=== PATIENT | female | born 1930 | race Caucasian/White ===

== ENCOUNTER 2018-05-14 10:40 | Inpatient (IN) | payer BC ==
[2018-05-14] VITALS (15 sets, daily range): BP systolic 96–155; BP diastolic 59–91
[~2018-05-14] VITALS: Ht 154.9 cm; Wt 93.2 kg
[2018-05-14 10:53] LABS: BASOPHIL (%) 0.4 % (0-1); EOSINOPHIL (%) 8.6 % (0-5); EOSINOPHIL COUNT 0.6 K/uL (0-0.3); HEMATOCRIT 39.3 % (36.0-46.0); HEMOGLOBIN 12.5 G/DL (11.9-15.5); IMMATURE GRANULOCYTE (%) 0.6 % (0.0-0.7); LYMPHOCYTE (%) 10.7 % (15-42); LYMPHOCYTE COUNT 0.8 K/uL (1.0-2.8); MCH 30.3 PG (29.0-34.0); MCHC 31.8 G/DL (30.0-36.0); MCV 95.4 FL (83-99); MONOCYTE (%) 7.3 % (3-12); MONOCYTE COUNT 0.5 K/uL (0-0.8); NEUTROPHIL (%) 72.4 % (45-76); NEUTROPHIL COUNT 5.2 K/uL (1.8-6.4); PLATELET COUNT 207 K/uL (156-360); RBC DIS.WIDTH-CV 14.6 % (11.8-14.6); RBC DIS.WIDTH-SD 51.4 % (39-53); RED BLOOD COUNT 4.12 M/uL (3.80-5.20); WHITE BLOOD COUNT 7.2 K/uL (4.1-10.2)
[2018-05-14 11:02] LABS: AMYLASE 65 IU/L (1-118); CHLORIDE 106 mEq/L (99-109); POTASSIUM 4.5 mEq/L (3.7-5.4); SODIUM 144 mEq/L (136-147)
[2018-05-14 11:04] LABS: GLUCOSE 129 mg/dL (70-99)
[2018-05-14 11:07] LABS: SERUM ETHYL ALCOHOL < 10 mg/dL
[2018-05-14 11:08] LABS: CREATININE 1.3 mg/dL (0.6-1.3); GFR ESTIMATE (CALCULATED) 41 mL/min/
[2018-05-14 11:09] LABS: UREA NITROGEN (BUN) 28 mg/dL (9-23)
[2018-05-14 11:11] LABS: LIPASE 30 U/L (1.0-51.0)
[2018-05-14 11:23] LABS: INTER. NORMALIZED RATIO 2.6
[2018-05-14] MEDS ORDERED: CELEBREX200 MG PO (11:44)
[2018-05-14] MEDS ORDERED: WARFARIN SODIUM3 MG PO (11:45)
[2018-05-14] MEDS ORDERED: KLOR-CON M1010 MEQ PO (11:45)
[2018-05-14] MEDS ORDERED: WARFARIN SODIUM4 MG PO (11:45)
[2018-05-14] MEDS ORDERED: LASIX40 MG PO (11:45)
[2018-05-14] MEDS ORDERED: METOPROLOL SUCC50 MG PO (11:46)
[2018-05-14 17:25] LABS: PTT 27.9 SEC (25-37)
[2018-05-14 17:37] LABS: INTER. NORMALIZED RATIO 1.2
[2018-05-15] VITALS (18 sets, daily range): BP systolic 105–167; BP diastolic 59–98
[2018-05-15 05:25] LABS: HEMOGLOBIN 10.8 G/DL (11.9-15.5); MCH 29.9 PG (29.0-34.0); MCHC 31.8 G/DL (30.0-36.0); MCV 94.2 FL (83-99); PLATELET COUNT 190 K/uL (156-360); RBC DIS.WIDTH-CV 14.5 % (11.8-14.6); RBC DIS.WIDTH-SD 50.2 % (39-53); RED BLOOD COUNT 3.61 M/uL (3.80-5.20); WHITE BLOOD COUNT 8.3 K/uL (4.1-10.2)
[2018-05-15 05:35] LABS: INTER. NORMALIZED RATIO 1.1
[2018-05-15 05:53] LABS: CHLORIDE 104 MEQ/L (99-109); CREATININE 0.9 MG/DL (0.6-1.3); GFR ESTIMATE (CALCULATED) > 59 mL/min/; GLUCOSE 103 mg/dL (70-99); MAGNESIUM 2.2 mg/dl (1.3-2.7); PHOSPHORUS 3.3 mg/dL (2.5-4.9); POTASSIUM 4.9 MEQ/L (3.7-5.4); SODIUM 140 MEQ/L (136-147); UREA NITROGEN (BUN) 25 mg/dL (9-23)
[2018-05-16 04:45] VITALS: BP 141/84
[2018-05-16 06:19] LABS: HEMATOCRIT 31.6 % (36.0-46.0); HEMOGLOBIN 10.2 G/DL (11.9-15.5); MCH 30.3 PG (29.0-34.0); MCHC 32.3 G/DL (30.0-36.0); MCV 93.8 FL (83-99); PLATELET COUNT 168 K/uL (156-360); RBC DIS.WIDTH-CV 14.4 % (11.8-14.6); RBC DIS.WIDTH-SD 49.4 % (39-53); RED BLOOD COUNT 3.37 M/uL (3.80-5.20); WHITE BLOOD COUNT 7.7 K/uL (4.1-10.2)
[2018-05-16 06:49] LABS: CHLORIDE 103 MEQ/L (99-109); GFR ESTIMATE (CALCULATED) 56 mL/min/; GLUCOSE 101 mg/dL (70-99); MAGNESIUM 2.2 mg/dl (1.3-2.7); PHOSPHORUS 3.2 mg/dL (2.5-4.9); POTASSIUM 4.4 MEQ/L (3.7-5.4); SODIUM 139 MEQ/L (136-147); UREA NITROGEN (BUN) 23 mg/dL (9-23)
[2018-05-16 07:36] VITALS: BP 105/68
[2018-05-16 11:02] VITALS: BP 127/66
[2018-05-16 15:58] VITALS: BP 140/86
[2018-05-16 20:18] VITALS: BP 149/62
[2018-05-16 23:54] VITALS: BP 133/96
[2018-05-17 04:44] VITALS: BP 129/89
[2018-05-17 07:13] LABS: HEMATOCRIT 33.7 % (36.0-46.0); HEMOGLOBIN 10.8 G/DL (11.9-15.5); MCH 30.3 PG (29.0-34.0); MCV 94.7 FL (83-99); PLATELET COUNT 182 K/uL (156-360); RBC DIS.WIDTH-CV 14.4 % (11.8-14.6); RBC DIS.WIDTH-SD 49.8 % (39-53); RED BLOOD COUNT 3.56 M/uL (3.80-5.20); WHITE BLOOD COUNT 7.8 K/uL (4.1-10.2)
[2018-05-17 07:36] LABS: CHLORIDE 101 MEQ/L (99-109); GFR ESTIMATE (CALCULATED) 56 mL/min/; GLUCOSE 97 mg/dL (70-99); MAGNESIUM 2.2 mg/dl (1.3-2.7); PHOSPHORUS 3.4 mg/dL (2.5-4.9); POTASSIUM 4.7 MEQ/L (3.7-5.4); SODIUM 139 MEQ/L (136-147); UREA NITROGEN (BUN) 23 mg/dL (9-23)
[2018-05-17 08:12] VITALS: BP 126/78
[2018-05-17 10:56] VITALS: BP 130/81
[2018-05-17 14:52] VITALS: BP 126/67
[2018-05-17 23:44] VITALS: BP 140/88
[2018-05-18 04:32] VITALS: BP 142/86
[2018-05-18 06:29] LABS: HEMATOCRIT 34.1 % (36.0-46.0); HEMOGLOBIN 10.8 G/DL (11.9-15.5); MCHC 31.7 G/DL (30.0-36.0); MCV 94.7 FL (83-99); PLATELET COUNT 198 K/uL (156-360); RBC DIS.WIDTH-CV 14.3 % (11.8-14.6); RBC DIS.WIDTH-SD 49.4 % (39-53); WHITE BLOOD COUNT 7.9 K/uL (4.1-10.2)
[2018-05-18 06:44] LABS: CHLORIDE 100 MEQ/L (99-109); CREATININE 0.9 MG/DL (0.6-1.3); GFR ESTIMATE (CALCULATED) > 59 mL/min/; GLUCOSE 95 mg/dL (70-99); MAGNESIUM 2.2 mg/dl (1.3-2.7); POTASSIUM 4.6 MEQ/L (3.7-5.4); SODIUM 141 MEQ/L (136-147); UREA NITROGEN (BUN) 23 mg/dL (9-23)
[2018-05-18 08:07] VITALS: BP 152/88
[2018-05-18] MEDS ORDERED: DOCUSATE SODIU100 MG PO (11:09)
[2018-05-18] MEDS ORDERED: ENDOCET 5-3251 EACH PO (11:09)
[2018-05-18] MEDS ORDERED: SENNA LAX8.6 MG PO (11:09)
[2018-05-18 12:21] VITALS: BP 129/76
[2018-05-18] MEDS ORDERED: LASIX20 MG PO (15:31)
[2018-05-18] MEDS ORDERED: TYLENOL325 M2 PO (15:34)
== END 2018-05-18 14:27 | DRG 551 ==
LOC: TRA 10:40 → 4WEST 12:53 → 3EAST 12:53 → EDOF 12:53 → ENRESERV 12:58 → 4WEST 13:40 → ENRESERV 05-15 16:35 → 3EAST 05-15 18:16
PROVIDERS: Emergency Medicine; Internal Medicine Critical Care Medicine
DX: S12.110A Anterior displaced Type II dens fracture, initial encounter for closed fracture (principal); S12.500A Unspecified displaced fracture of sixth cervical vertebra, initial encounter for closed fracture; S06.5X0A Traumatic subdural hemorrhage without loss of consciousness, initial encounter; S06.6X0A Traumatic subarachnoid hemorrhage without loss of consciousness, initial encounter; S00.83XA Contusion of other part of head, initial encounter; S00.10XA Contusion of unspecified eyelid and periocular area, initial encounter; S00.31XA Abrasion of nose, initial encounter; S51.812A Laceration without foreign body of left forearm, initial encounter; W01.10XA Fall on same level from slipping, tripping and stumbling with subsequent striking against unspecified object, initial encounter; I48.91 Unspecified atrial fibrillation; R25.1 Tremor, unspecified; H26.9 Unspecified cataract; I27.20 Pulmonary hypertension, unspecified; I36.1 Nonrheumatic tricuspid (valve) insufficiency; I10 Essential (primary) hypertension; Z79.01 Long term (current) use of anticoagulants; Z88.0 Allergy status to penicillin
CPT/HCPCS: 70450; 71045; 71250; 72020; 72125; 80048; 81003; 82150; 83690; 83735; 83880; 84100; 85025; 85027; 85610; 85730; 86850; 86900; 86901; 87641; 93005; 93306; 94799; 97530 GO; 97530 GP; 99281; 99285; C9132; G0480; J3430; J7050

== ENCOUNTER 2018-05-18 10:26 | Inpatient (IN) | payer BC ==
[~2018-05-18] VITALS: Ht 154.9 cm; Wt 91.3 kg
[~2018-05-18 10:26] MED LIST: CELEBREX200 MG PO; KLOR-CON M1010 MEQ PO; LASIX40 MG PO; METOPROLOL SUCC50 MG PO; WARFARIN SODIUM3 MG PO; WARFARIN SODIUM4 MG PO
[2018-05-18] MEDS ORDERED: ENDOCET 5-3251 EACH PO (11:09)
[2018-05-18] MEDS ORDERED: SENNA LAX8.6 MG PO (11:09)
[2018-05-18] MEDS ORDERED: DOCUSATE SODIU100 MG PO (11:09)
[2018-05-18 14:20] VITALS: BP 140/70
[2018-05-18] MEDS ORDERED: LASIX20 MG PO (15:31)
[2018-05-18] MEDS ORDERED: TYLENOL325 M2 PO (15:34)
[2018-05-19 00:06] VITALS: BP 110/54
[2018-05-19 06:38] VITALS: BP 121/60
[2018-05-19 07:50] LABS: HEMATOCRIT 33.8 % (36.0-46.0); HEMOGLOBIN 10.9 G/DL (11.9-15.5); MCH 30.1 PG (29.0-34.0); MCHC 32.2 G/DL (30.0-36.0); MCV 93.4 FL (83-99); PLATELET COUNT 210 K/uL (156-360); RBC DIS.WIDTH-CV 14.5 % (11.8-14.6); RBC DIS.WIDTH-SD 49.2 % (39-53); RED BLOOD COUNT 3.62 M/uL (3.80-5.20); WHITE BLOOD COUNT 8.2 K/uL (4.1-10.2)
[2018-05-19 08:30] LABS: ALBUMIN 3.2 G/DL (3.2-4.8); ALKALINE PHOSPHATASE 117 IU/L (3-129); ALT (GPT) 8 IU/L (3-49); AST (GOT) 11 IU/L (2-34); CHLORIDE 99 MEQ/L (99-109); CREATININE 0.9 MG/DL (0.6-1.3); GFR ESTIMATE (CALCULATED) > 59 mL/min/; GLUCOSE 100 mg/dL (70-99); POTASSIUM 4.5 MEQ/L (3.7-5.4); SODIUM 140 MEQ/L (136-147); TOTAL BILIRUBIN 0.7 MG/DL (0.0-1.0); TOTAL PROTEIN 6.2 G/DL (6.4-8.3); UREA NITROGEN (BUN) 23 mg/dL (9-23)
[2018-05-19 15:39] VITALS: BP 121/66
[2018-05-20 07:01] VITALS: BP 162/85
[2018-05-20 15:25] VITALS: BP 111/74
[2018-05-21 05:27] VITALS: BP 107/65
[2018-05-21 15:12] VITALS: BP 112/68
[2018-05-22 06:03] VITALS: BP 114/78
[2018-05-22 15:48] VITALS: BP 107/53
[2018-05-23 05:28] VITALS: BP 102/55
[2018-05-23 07:15] LABS: BASOPHIL (%) 0.4 % (0-1); EOSINOPHIL (%) 7.5 % (0-5); EOSINOPHIL COUNT 0.5 K/uL (0-0.3); HEMATOCRIT 32.6 % (36.0-46.0); HEMOGLOBIN 10.6 G/DL (11.9-15.5); IMMATURE GRANULOCYTE (%) 0.7 % (0.0-0.7); LYMPHOCYTE (%) 7.5 % (15-42); LYMPHOCYTE COUNT 0.5 K/uL (1.0-2.8); MCH 30.1 PG (29.0-34.0); MCHC 32.5 G/DL (30.0-36.0); MCV 92.6 FL (83-99); MONOCYTE (%) 12.1 % (3-12); MONOCYTE COUNT 0.8 K/uL (0-0.8); NEUTROPHIL (%) 71.8 % (45-76); NEUTROPHIL COUNT 4.9 K/uL (1.8-6.4); PLATELET COUNT 242 K/uL (156-360); RBC DIS.WIDTH-SD 50.4 % (39-53); RED BLOOD COUNT 3.52 M/uL (3.80-5.20); WHITE BLOOD COUNT 6.8 K/uL (4.1-10.2)
[2018-05-23 07:33] LABS: CHLORIDE 97 MEQ/L (99-109); CREATININE 1.2 MG/DL (0.6-1.3); GFR ESTIMATE (CALCULATED) 45 mL/min/; GLUCOSE 91 mg/dL (70-99); POTASSIUM 4.7 MEQ/L (3.7-5.4); SODIUM 136 MEQ/L (136-147)
[2018-05-23 07:36] LABS: UREA NITROGEN (BUN) 38 mg/dL (9-23)
[2018-05-23 15:43] VITALS: BP 131/59
[2018-05-24 05:26] VITALS: BP 119/73
[2018-05-24 15:40] VITALS: BP 116/56
[2018-05-25 04:50] VITALS: BP 110/57
[2018-05-25 15:11] VITALS: BP 106/66
[2018-05-26 04:19] VITALS: BP 130/73
[2018-05-26 06:11] LABS: BASOPHIL (%) 0.5 % (0-1); EOSINOPHIL (%) 6.2 % (0-5); EOSINOPHIL COUNT 0.5 K/uL (0-0.3); HEMATOCRIT 32.3 % (36.0-46.0); HEMOGLOBIN 10.3 G/DL (11.9-15.5); IMMATURE GRANULOCYTE (%) 0.5 % (0.0-0.7); LYMPHOCYTE (%) 9.5 % (15-42); LYMPHOCYTE COUNT 0.7 K/uL (1.0-2.8); MCH 29.7 PG (29.0-34.0); MCHC 31.9 G/DL (30.0-36.0); MCV 93.1 FL (83-99); MONOCYTE (%) 10.1 % (3-12); MONOCYTE COUNT 0.8 K/uL (0-0.8); NEUTROPHIL (%) 73.2 % (45-76); NEUTROPHIL COUNT 5.6 K/uL (1.8-6.4); PLATELET COUNT 260 K/uL (156-360); RBC DIS.WIDTH-CV 15.3 % (11.8-14.6); RBC DIS.WIDTH-SD 52.6 % (39-53); RED BLOOD COUNT 3.47 M/uL (3.80-5.20); WHITE BLOOD COUNT 7.6 K/uL (4.1-10.2)
[2018-05-26 06:39] LABS: CHLORIDE 100 MEQ/L (99-109); GFR ESTIMATE (CALCULATED) > 59 mL/min/; GLUCOSE 93 mg/dL (70-99); POTASSIUM 5.3 MEQ/L (3.7-5.4); SODIUM 136 MEQ/L (136-147); UREA NITROGEN (BUN) 35 mg/dL (9-23)
[2018-05-26 06:47] LABS: CREATININE 0.7 MG/DL (0.6-1.3)
[2018-05-26] MEDS ORDERED: VALSARTAN160 MG PO (12:30)
[2018-05-26] MEDS ORDERED: FUROSEMIDE40 MG PO (12:31)
[2018-05-26] MEDS ORDERED: LASIX20 MG PO (12:32)
[2018-05-26] MEDS ORDERED: POLYETHYLENE GL17 GM PO (12:33)
[2018-05-26 15:03] VITALS: BP 92/54
[2018-05-26 15:25] VITALS: BP 110/60
== END 2018-05-26 16:25 | DRG 945 ==
LOC: 3WEST 10:26
PROVIDERS: Family Medicine Sports Medicine; Psychiatry & Neurology Neurology
PROC: F07M0ZZ Range of Motion and Joint Mobility Treatment of Musculoskeletal System - Whole Body (ICD-10-PCS; principal; 2018-05-18)
DX: S06.5X9D Traumatic subdural hemorrhage with loss of consciousness of unspecified duration, subsequent encounter (principal); S06.6X9D Traumatic subarachnoid hemorrhage with loss of consciousness of unspecified duration, subsequent encounter; F07.81 Postconcussional syndrome; S12.110D Anterior displaced Type II dens fracture, subsequent encounter for fracture with routine healing; S12.500D Unspecified displaced fracture of sixth cervical vertebra, subsequent encounter for fracture with routine healing; R26.2 Difficulty in walking, not elsewhere classified; R13.10 Dysphagia, unspecified; D64.9 Anemia, unspecified; I48.1 Persistent atrial fibrillation; I27.20 Pulmonary hypertension, unspecified; I08.1 Rheumatic disorders of both mitral and tricuspid valves; I12.9 Hypertensive chronic kidney disease with stage 1 through stage 4 chronic kidney disease, or unspecified chronic kidney disease; N18.9 Chronic kidney disease, unspecified; E87.6 Hypokalemia; Z88.0 Allergy status to penicillin; Z79.01 Long term (current) use of anticoagulants
CPT/HCPCS: 80048; 80053; 85025; 85027; 92523 GN; 97110 GO; 97530 GP